=== PATIENT | female | born 1985 | race Caucasian/White ===

== ENCOUNTER 2016-12-19 12:41 | Emergency (ER) | payer MEDICARE, MEDICAID ==
[~2016-12-19] VITALS: Wt 69.0 kg
[2016-12-19] MEDS ORDERED: CEPH-443 PO (14:56)
[2016-12-19] MEDS ORDERED: IBUP-1542 PO (14:56)
--- NOTE | 2016-12-19 15:03 | ERD ---
ER Documentation Chief Complaint Date/Time DATE: 12/19/16 TIME: 14:58 Chief Complaint LEFT 5TH DIGIT SWELLING/PAIN HPI 31-year-old female complaining of left fifth finger swelling and pain 2 days. Patient stated that she was picking at the cuticle, the next day the swelling began. Denies fever or chills. Denies any other injuries. ROS All systems reviewed and are negative except as per history of present illness. Medications Home Meds Active Scripts Ibuprofen* (Motrin*) 600 Mg Tab, 600 MG PO Q6H Y for PAIN AND OR ELEVATED TEMP, #30 TAB Prov:VIRGIL LOW. MANUFACTURING TECHNOLOGY PROFESSOR 12/19/16 Cephalexin* (Keflex*) 500 Mg Capsule, 500 MG PO QID for 5 Days, CAP Prov:VIRGIL LOW. MANUFACTURING TECHNOLOGY PROFESSOR 12/19/16 Allergies Allergies: Coded Allergies: No Known Allergy (Unverified , 04/20/16) PMhx/Soc Medical and Surgical Hx: pt denies Surgical Hx Hx Miscellaneous Medical Probl: Yes (TOURRETTE, DYSLEXIA, AUTISM) Hx Alcohol Use: No Hx Substance Use: No Hx Tobacco Use: No Smoking Status: Never smoker Physical Exam Vitals Vital Signs Date Time Temp Pulse Resp B/P Pulse Ox O2 Delivery O2 Flow Rate FiO2 12/19/16 12:43 98.0 83 18 129/74 98 Physical Exam General impression: Well-developed, well-nourished. Alert, oriented, in no acute distress. Head twitching on medication. Head: Normocephalic, atraumatic. Eyes: PERRL, EOM normal. Conjunctiva not injected. ENT: External canals clear. TM's pearly montano. Nasal mucosa, oral mucosa and oropharynx are normal. Neck: Supple, nontender. No lymphadenopathy. No nuchal rigidity. Respiration: Normal respiratory effort. Lungs clear to auscultate bilaterally. No wheezes, rales or rhonchi. Cardiovascular: Regular rate and rhythm. No murmurs or extra heart sounds. Abdomen: Abdomen normal to inspection. Nontender. No masses or organomegaly. Bowel sounds normal. Back: Normal to inspection. No midline spine tenderness. No CVA tenderness. Extremities: Paronychia on the left fifth finger, with sizable pus pocket. Tender to palpation. Normal ROM, neurovascularly intact, normal strength. Neuro: Mental status normal, speech normal. CONTINUOUS IMPROVEMENT ANALYST grossly intact. Skin: Normal turgor. No rash or lesions. Psych: Normal mood and affect. Procedures/MDM Procedure note: Incision and Drainage Verbal consent obtained for incision and drainage of patient's abscess. The area was prepped with Betadine. Incision was made using #11 blade into the pus pocket. About 2-3 mL purulent discharge was drained from the abscess. The wound was then cleaned and dressed. Patient tolerated procedure well. Patient does have some erythema under the paronychia, I help to treat her with p.o. antibiotics. Patient appears well, stable for discharge and outpatient management. Medical decision making shared with patient and family. Education provided to patient and family. Patient and family expressed understanding of the plan. Medications on discharge: Ibuprofen, Keflex. Follow-up: Return to eating 2 days for wound check. Departure Diagnosis: Primary Impression: Paronychia Laterality: left Qualified Code: L03.012 - Paronychia, left Condition: Good Patient Instructions: Paronychia Additional Instructions: Return to this facility in 2 DAYS for a follow-up exam.Return sooner if your condition worsens. VIRGIL LOW NP Dec 19, 2016 15:03
== END 2016-12-19 15:04 | disposition home or self-care (01) ==
LOC: FTE 12:41
DX: L03.012 Cellulitis of left finger (principal); F84.0 Autistic disorder

== ENCOUNTER 2017-02-24 18:24 | Emergency (ER) | payer MEDICAID, MEDICARE ==
[~2017-02-24] VITALS: Ht 167.6 cm; Wt 64.5 kg
[~2017-02-24 18:24] MED LIST: CEPH-443 PO; IBUP-1542 PO
[2017-02-24 18:44] VITALS: Ht 167.6 cm; Wt 64.5 kg
[2017-02-24] MEDS ORDERED: KETOROLAC 60 MG INJ IM STA (19:47)
[2017-02-24 20:46] LABS: ADD UMIC YES; URINE BILIRUBIN (Dip) NEGATIVE (NEGATIVE); URINE BLOOD (Dip) NEGATIVE (NEGATIVE); URINE COLOR YELLOW (YELLOW); URINE GLUCOSE (Dip) NEGATIVE (NEGATIVE); URINE KETONES (Dip) NEGATIVE (NEGATIVE); URINE LEUKOCYTE ESTERASE (Dip) NEGATIVE (NEGATIVE); URINE NITRITE (Dip) NEGATIVE (NEGATIVE); URINE TOTAL PROTEIN (Dip) 1+ (NEGATIVE); URINE UROBILINOGEN (Dip) 0.2 E.U./dL (0.1-1.0)
--- NOTE | 2017-02-24 21:20 | RADRPT ---
PROCEDURE: XR both hips. CLINICAL INDICATION: Generalized pain. TECHNIQUE: AP and frog lateral views of the both hips were performed. COMPARISON: No. FINDINGS: There is normal mineralization and alignment. No fracture or osseous lesion is identified. There are normal joints without evidence of arthritis or effusion. The soft tissues are unremarkable. IMPRESSION: 1. Normal AP and frog-leg views of both hips. RPTAT:AAJJ Physician Brenda Date Time Electronically viewed and signed by Daniel Luque Physician on 02/24/2017 21:19 RICA/
--- NOTE | 2017-02-24 21:21 | RADRPT ---
AMENDMENT: 02/24/2017 10:47:25 PM Filiberto Mandel Md ADDENDUM: There is no fracture. PROCEDURE: XR Lumbar Spine. CLINICAL INDICATION: Back pain. TECHNIQUE: AP, lateral and cone-down lateral view of the lumbar spine were obtained. COMPARISON: No prior studies are available for comparison. FINDINGS: There are 5 lumbar vertebra. The sacrum and SI joints are normal. There is a normal lumbar curvatu re. The lumbar vertebra are anatomically aligned. The neural canal and nerve root foramina are nor mal. There is mild disk space narrowing at L5-S1. IMPRESSION: 1. Mild dorsal disk space narrowing at L5-S1. 2. Rarefaction of bony elements. RPTAT:AAJJ .Filiberto Mandel MD, Date Time Electronically viewed and signed by .Filiberto Mandel MD, on 02/24/2017 22:47 .K/
--- NOTE | 2017-02-24 21:25 | RADRPT ---
AMENDMENT: 02/24/2017 10:48:36 PM Filiberto Mandel Md ADDENDUM: CLINICAL INDICATION: Generalized pain. PROCEDURE: 3 views of both knees were performed. CLINICAL INDICATION: Generalized pain after a fall. TECHNIQUE: AP, tunnel and lateral views of the right knee were performed. AP tunnel and lateral views of the left knee were obtained. COMPARISON: None FINDINGS: The soft tissues and bony elements are normal. No effusion is identified in either knee. IMPRESSION: 1. Normal three-view right knee. 2. Normal three-view left knee. RPTAT:AAJJ .Filiberto Mandel MD, Date Time Electronically viewed and signed by .Filiberto Mandel MD, on 02/24/2017 22:48 .K/
[2017-02-24 21:41] LABS: URINE RBCS 0-2 /HPF (0)
[2017-02-24 21:42] LABS: BACTERIA,URINE MODERATE; SQUAMOUS EPITHELIAL CELL,UR FEW
[2017-02-24] MEDS ORDERED: ACET1TAB40 PO (22:50)
[2017-02-24] MEDS ORDERED: IBUP-1542 PO (22:50)
--- NOTE | 2017-02-25 00:19 | ERD ---
ER Documentation Chief Complaint Date/Time DATE: 02/25/17 TIME: 00:15 Chief Complaint C/O HIP/BACK AND KNEE PAIN SINCE SAT. HELPED FRIEND MOVE. HPI 31 year old female patient with a past medical history of fibromyalgia and arthritis presents to the ED complaining of acute onset of back, hip and bilateral knee pain that started yesterday after she was helping her friends move their tables, desk and chairs, and other furniture. Patient stated that they were about 35 pounds. States that she is having a slight stabbing and sharp pain. Reports that her last menses was on August 12, 2016 but denies being and menses is irregular. Reports that her menses is irregular. States that she sees Dr. Singer as her primary care physician and Dr. Parham for her chronic pain doctor. ROS All systems reviewed and are negative except as per history of present illness. Medications Home Meds Active Scripts Ibuprofen* (Motrin*) 600 Mg Tab, 600 MG PO Q6, #30 TAB Prov:ENRIQUE CARDONA PA-C 02/24/17 Acetaminophen with Codeine (Acetaminophen-Cod #3 Tablet) 1 Each Tablet, 1 TAB PO Q6H Y for PAIN, #12 TAB Prov:ENRIQUE CARDONA PA-C 02/24/17 Ibuprofen* (Motrin*) 600 Mg Tab, 600 MG PO Q6H Y for PAIN AND OR ELEVATED TEMP, #30 TAB Prov:VIRGIL LOW. AUTOMOTIVE PARTS COUNTER PERSON 12/19/16 Cephalexin* (Keflex*) 500 Mg Capsule, 500 MG PO QID for 5 Days, CAP Prov:VIRGIL LOW. AUTOMOTIVE PARTS COUNTER PERSON 12/19/16 Allergies Allergies: Coded Allergies: No Known Allergy (Unverified , 04/20/16) PMhx/Soc Medical and Surgical Hx: pt denies Surgical Hx History of Surgery: No Hx Miscellaneous Medical Probl: Yes (TOURRETTE, DYSLEXIA, AUTISM, arthritis and fibromyalgia) Hx Alcohol Use: No Hx Substance Use: No Hx Tobacco Use: No Smoking Status: Never smoker Physical Exam Vitals Vital Signs Date Time Temp Pulse Resp B/P Pulse Ox O2 Delivery O2 Flow Rate FiO2 02/24/17 18:44 98.6 84 18 143/89 100 Physical Exam Const: [id number], well-nourished. In no acute distress. Head: Atraumatic, normocephalic Eyes: Normal Conjunctiva without injection ENT: Normal external ear, nose and mouth. Neck: Full range of motion. No meningismus. Resp: Clear to auscultation bilaterally. No wheezing, rhonchi, rales, or crackles. No accessory muscle use. No retractions. Cardio: Regular rate and rhythm, no murmurs Skin: No petechiae or rashes Back: Tenderness palpation of the L4-L5 region. Slight limited range of motion due to the pain. No CVA tenderness. Ext: No cyanosis, or edema. Cap refill less than 2 seconds. Distal pulses intact bilaterally. Tenderness to palpation of the bilateral patella. No erythema, edema, deformities noted. Patient has full range of motion of the knees with flexion, extension. Palpation of the bilateral hips. Neur: Awake and alert. Normal gait and coordination. Muscle strength 5/5. Sensation intact bilaterally. Psych: Normal Mood and Affect Results 24 hrs Laboratory Tests Test 02/24/17 20:08 Urine Color YELLOW Urine Clarity CLEAR Urine pH 6.5 Urine Specific [place] 1.020 Urine Ketones NEGATIVE Urine Nitrite NEGATIVE Urine Bilirubin NEGATIVE Urine Urobilinogen 0.2 E.U./dL Urine Leukocyte Esterase NEGATIVE Urine Microscopic RBC 0-2/HPF Urine Microscopic WBC 0-2/HPF Urine Squamous Epithelial Cells FEW Urine Bacteria MODERATE Urine Hemoglobin NEGATIVE Urine Glucose NEGATIVE% Urine Total Protein 1+ Current Medications Medications (Trade) Dose Ordered Sig/Maki Route PRN Reason Start Time Stop Time Status Last Admin Dose Admin Ketorolac Tromethamine (Toradol) 60 mg ONCE STAT IM 02/24/17 19:47 02/24/17 19:51 DC 02/24/17 20:09 Procedures/MDM This is a 31-year-old female with no significant past medical history presents to the ED complaining of bilateral hip, back, knee pain that started yesterday after heavy lifting and moving furniture. Patient is afebrile and nontoxic- appearing. Patient has normal vital signs. Due to the bony tenderness palpated on physical exam, a lumbar x-ray, hip, knee x-ray was ordered to further evaluate patient. AMENDMENT: 02/24/2017 10:48:36 PM Filiberto Mandel Md ADDENDUM: CLINICAL INDICATION: Generalized pain. PROCEDURE: 3 views of both knees were performed. CLINICAL INDICATION: Generalized pain after a fall. TECHNIQUE: AP, tunnel and lateral views of the right knee were performed. AP tunnel and lateral views of the left knee were obtained. COMPARISON: None FINDINGS: The soft tissues and bony elements are normal. No effusion is identified in either knee. IMPRESSION: 1. Normal three-view right knee. 2. Normal three-view left knee. PROCEDURE: XR both hips. CLINICAL INDICATION: Generalized pain. TECHNIQUE: AP and frog lateral views of the both hips were performed. COMPARISON: No. FINDINGS: There is normal mineralization and alignment. No fracture or osseous lesion is identified. There are normal joints without evidence of arthritis or effusion. The soft tissues are unremarkable. IMPRESSION: 1. Normal AP and frog-leg views of both hips. AMENDMENT: 02/24/2017 10:47:25 PM Filiberto Mandel Md ADDENDUM: There is no fracture. PROCEDURE: XR Lumbar Spine. CLINICAL INDICATION: Back pain. TECHNIQUE: AP, lateral and cone-down lateral view of the lumbar spine were obtained. COMPARISON: No prior studies are available for comparison. FINDINGS: There are 5 lumbar vertebra. The sacrum and SI joints are normal. There is a normal lumbar curvature. The lumbar vertebra are anatomically aligned. The neural canal and nerve root foramina are normal. There is mild disk space narrowing at L5-S1. IMPRESSION: 1. Mild dorsal disk space narrowing at L5-S1. 2. Rarefaction of bony elements. Patient's extremity symptoms have stabilized while they have been evaluated in the department and are appropriate for outpatient follow up. Likely chronic pain. No evidence of fractures, dislocations, compartment syndrome, neurologic injury, vascular injury, open joint, open fracture, tendon laceration, septic arthritis, osteomyelitis, DVT, foreign body, or other emergent conditions. Patient is ambulating here in the ED without difficulty. Denies saddle anesthesia, numbness or tingling, urine or bowel incontinence, weakness. Low suspicion for cauda equina syndrome, cord compression, nephrolithiasis, aortic aneurysm, aortic dissection, epidural abscess, spinal hematoma, malignancy, pyelonephritis, or other emergent conditions. Discharge medications: Ibuprofen, Tylenol No. 3 Follow up with primary care physician and chronic pain specialist in 1-2 days. Instructed patient to return to the ED sooner for any worsening symptoms. Patient's questions were answered. Patient understood and agreed with discharge plan. Patient discharged stable. Departure Diagnosis: Primary Impression: Back pain Back pain location: low back pain Chronicity: chronic Back pain laterality : unspecified Sciatica presence: unspecified whether sciatica present Qualified Code: M54.5 - Chronic low back pain, unspecified back pain laterality , with sciatica presence unspecified Additional Impressions: Hip pain Laterality: bilateral Qualified Code: M25.551 - Pain of both hip joints Knee pain Laterality: bilateral Chronicity: unspecified Qualified Code: M25.561 - Pain in both knees, unspecified chronicity Condition: Stable Patient Instructions: Back Pain (Acute Or Chronic), Knee Pain, Uncertain Cause Referrals: [facility] YOU HAVE RECEIVED A MEDICAL SCREENING EXAM AND THE RESULTS INDICATE THAT YOU DO NOT HAVE A CONDITION THAT REQUIRES URGENT TREATMENT IN THE EMERGENCY DEPARTMENT. FURTHER EVALUATION AND TREATMENT OF YOUR CONDITION CAN WAIT UNTIL YOU ARE SEEN IN YOUR DOCTORS OFFICE WITHIN THE NEXT 1-2 DAYS. IT IS YOUR RESPONSIBILITY TO MAKE AN APPOINTMENT FOR FOLOW-UP CARE. IF YOU HAVE A PRIMARY DOCTOR --you should call your primary doctor and schedule an appointment IF YOU DO NOT HAVE A PRIMARY DOCTOR YOU CAN CALL OUR PHYSICIAN REFERRAL HOTLINE AT IF YOU CAN NOT AFFORD TO SEE A PHYSICIAN YOU CAN CHOSE FROM THE FOLLOWING [facility] [address] [facility] [address] [facility]. [facility] [address] [facility] [facility] [address] [facility] [facility] [address] [facility]. [facility]. [address] [facility]. [facility] YOU HAVE RECEIVED A MEDICAL SCREENING EXAM AND THE RESULTS INDICATE THAT YOU DO NOT HAVE A CONDITION THAT REQUIRES URGENT TREATMENT IN THE EMERGENCY DEPARTMENT. FURTHER EVALUATION AND TREATMENT OF YOUR CONDITION CAN WAIT UNTIL YOU ARE SEEN IN YOUR DOCTORS OFFICE WITHIN THE NEXT 1-2 DAYS. IT IS YOUR RESPONSIBILITY TO MAKE AN APPOINTMENT FOR FOLOW-UP CARE. IF YOU HAVE A PRIMARY DOCTOR --you should call your primary doctor and schedule and appointment IF YOU DO NOT HAVE A PRIMARY DOCTOR YOU CAN CALL OUR PHYSICIAN REFERRAL HOTLINE AT . IF YOU CAN NOT AFFORD TO SEE A PHYSICIAN YOU CAN CHOSE FROM THE FOLLOWING [facility] INSTITUTIONS: [facility] [id number] [place] [address] [facility] [address] [place] [address] [facility] [address] [place] [address] [facility] URGENT CARE/SPECIALTIES Additional Instructions: Call your primary care doctor and chronic pain specialist TOMORROW for an appointment during the next 2-3 days.See the doctor sooner or return here if your condition worsens before your appointment time. ENRIQUE CARDONA PA-C Feb 25, 2017 00:19 ENRIQUE CARDONA PA-C Feb 25, 2017 00:19
== END 2017-02-24 23:40 | disposition left against medical advice (07) ==
LOC: FTE 18:24
DX: M54.5 Low back pain (principal); M25.551 Pain in right hip; M25.552 Pain in left hip; M25.561 Pain in right knee; M25.562 Pain in left knee; F84.0 Autistic disorder; Z04.3 Encounter for examination and observation following other accident
CPT/HCPCS: 72100; 73520; 73562; 81001; 96372; J1885; Z7502; 81003

== ENCOUNTER 2017-05-06 05:06 | Emergency (ER) | payer MEDICAID, OTHER ==
[~2017-05-06] VITALS: Ht 162.6 cm; Wt 65.5 kg
[~2017-05-06 05:06] MED LIST changes: +ACET1TAB40 PO
[2017-05-06 05:09] VITALS: Ht 162.6 cm; Wt 65.5 kg
== END 2017-05-06 06:48 | disposition left against medical advice (07) ==
LOC: FTE 05:06
DX: Z53.21 Procedure and treatment not carried out due to patient leaving prior to being seen by health care provider (principal)